=== PATIENT | male | born 1975 | race Caucasian/White ===

== ENCOUNTER 2024-04-11 17:58 | Emergency (ER) | payer OTHER, SELFPAY ==
[2024-04-11 18:38] VITALS: BP 129/75; PULSE 59; RESP 16; TEMP 37.6; O2SAT 98; BMI 23.6
== END 2024-04-11 23:55 | disposition left against medical advice (07) ==
LOC: ED 23:27
DX: Z53.21 Procedure and treatment not carried out due to patient leaving prior to being seen by health care provider (principal)